=== PATIENT | female | born 1985 | race Two or more races ===

== ENCOUNTER 2017-11-16 10:07 | Emergency (ER) | payer OTHER ==
[~2017-11-16] VITALS: Ht 165.1 cm; Wt 109.3 kg
[~2017-11-16 10:07] MED LIST: KEFLEX500 MG PO
[2017-11-16 10:47] LABS: ADD MIUA? YES; BILIRUBIN NEGATIVE; BLOOD NEGATIVE; COLOR AMBER ((YELLOW)); GLUCOSE (STRIP) NEGATIVE; KETONES 5; LEUKOCYTES TRACE; NITRITE NEGATIVE; PROTEIN (STRIP) 30; SPECIFIC GRAVITY 1.035 (1.000-1.030); UROBILINOGEN 0.2 MG/DL (0.2-1.0)
[2017-11-16 11:02] LABS: BACTERIA 2+ /HPF; CASTS NONE SEEN /LPF; CRYSTALS NONE SEEN; EPITHELIAL CELLS 1+ /HPF; MUCUS NONE SEEN /LPF; RED BLOOD CELLS NONE SEEN /HPF (0-5); UCUL ADDED? YES
[2017-11-16 11:39] LABS: CHLORIDE 107 mEq/L (99-109); POTASSIUM 4.8 mEq/L (3.7-5.4); SODIUM 136 mEq/L (136-147)
[2017-11-16 11:41] LABS: GLUCOSE 77 mg/dL (70-99)
[2017-11-16 11:42] LABS: ANION GAP 10 MEQ/L (2-14)
[2017-11-16 11:43] LABS: HEMATOCRIT 28.7 % (36.0-46.0); MCH 19.2 PG (29.0-34.0); MCHC 28.9 G/DL (30.0-36.0); MCV 66.3 FL (83-99); MEAN PLAT.VOLUME 9.6 uM^3 (9.5-12.4); PLATELET COUNT 470 K/uL (156-360); RBC DIS.WIDTH-CV 16.4 % (11.8-14.6); RBC DIS.WIDTH-SD 38.5 % (39-53); RED BLOOD COUNT 4.33 M/uL (3.80-5.20); TOTAL BILIRUBIN 0.2 mg/dL (0.0-1.0); WHITE BLOOD COUNT 10.6 K/uL (4.1-10.2)
[2017-11-16 11:44] LABS: ALKALINE PHOSPHATASE 44 IU/L (3-129)
[2017-11-16 11:45] LABS: GFR ESTIMATE (CALCULATED) > 59 mL/min/
[2017-11-16 11:46] LABS: UREA NITROGEN (BUN) 13 mg/dL (9-23)
[2017-11-16 11:53] LABS: QUANTITATIVE HCG < 4.0 MIU/ML
[2017-11-16] MEDS ORDERED: NAPROSYN500 MG PO (17:26)
[2017-11-16 17:38] VITALS: BP 145/72
== END 2017-11-16 17:39 | disposition home or self-care (01) ==
LOC: EME 10:07
DX: N83.201 Unspecified ovarian cyst, right side (principal); N83.202 Unspecified ovarian cyst, left side; D64.9 Anemia, unspecified; Z90.49 Acquired absence of other specified parts of digestive tract; Z87.891 Personal history of nicotine dependence
CPT/HCPCS: 74177; 76856; 80053; 81003; 84702; 85027; 87086; 99281; 99285; J2405; J3010; J7030